=== PATIENT | female | born 1995 | race Caucasian/White ===

== ENCOUNTER → 2018-03-23 | Outpatient (CLI) | payer BC ==
--- NOTE | 2018-03-24 07:27 | US ---
EXAMINATION TYPE: US pelvic complete DATE OF EXAM: 03/23/2018 COMPARISON: NONE CLINICAL HISTORY: R10.2 Pelvic and perineal pain. Intermittent pelvic pain x 4 days, 1, ectop ic 1, patient on control. TECHNIQUE: . Transabdominal sonographic images of the pelvis were acquired. Transvaginal sonographi c images were medically necessary to better assess the following anatomy: transvaginal ordered by lakeisha jose. Date of LMP: 2 weeks ago EXAM MEASUREMENTS: Uterus: 7.1 x 2.7 x 3.8 cm Endometrial Stripe: 0.3 cm Right Ovary: 2.2 x 1.1 x 1.8 cm Left Ovary: 2.2 x 1.0 x 2.1 cm 1. Uterus: anteverted 2. Endometrium: wnl 3. Right Ovary: wnl 4. Left Ovary: wnl 5. Bilateral Adnexa: wnl 6. Posterior cul-de-sac: small amount of free fluid seen Anteverted uterus is present. Both ovaries are seen and not suspiciously enlarged. No free fluid is s een in pelvic cul-de-sac initially. Endometrial stripe appears within normal limits. Towards end of e xam on transvaginal investigation tiny amount of free fluid is noted. IMPRESSION: Tiny amount of free fluid in pelvic cul-de-sac, nonspecific finding otherwise unremarkabl e study.
== END ==
LOC: RADUSWWP 14:49
PROVIDERS: ATTEND Internal Medicine
DX: R10.2 Pelvic and perineal pain (principal)
CPT/HCPCS: 76830; 76856

== ENCOUNTER → 2020-05-10 | Outpatient (CLI) | payer BC | END | disposition home or self-care (01) | LOC: LABWHC1 16:42 | PROVIDERS: ATTEND Family Medicine | DX: Z20.828 Contact with and (suspected) exposure to other viral communicable diseases (principal) | CPT/HCPCS: U0003; C9803 ==